=== PATIENT | female | born 1985 | race Two or more races ===

== ENCOUNTER → 2019-03-13 | Outpatient (CLI) | payer MEDICAID ==
[~2019-03-13] MED LIST: IBUP-1222 PO; PREN1TAB60 PO
[2019-03-13 10:22] LABS: MICROSCOPIC NOT IND
[2019-03-13 10:23] LABS: BASOPHILS # (AUTO) 0.07 x10^3/uL (0-0.1); BASOPHILS % (AUTO) 1 % (0-1); EOSINOPHILS # (AUTO) 0.24 x10^3/uL (0-0.4); EOSINOPHILS % (AUTO) 3 % (1-7); LYMPHOCYTES # (AUTO) 2.92 x10^3/uL (1-3.4); LYMPHOCYTES % (AUTO) 30 % (22-44); MD NO; MEAN CORPUSCULAR HEMOGLOBIN 30.2 pg (27.0-34.8); MEAN CORPUSCULAR HGB CONC 33.8 g/dL (32.4-35.8); MEAN CORPUSCULAR VOLUME 89.3 fL (80-100); MEAN PLATELET VOLUME 9.7 fL (7.4-10.4); MONOCYTES # (AUTO) 0.52 x10^3/uL (0.2-0.8); MONOCYTES % (AUTO) 5 % (2-9); NEUTROPHILS # (AUTO) 5.85 x10^3/uL (1.8-6.8); NEUTROPHILS % (AUTO) 61 % (42-75); PLATELET COUNT 227 x10^3/uL (130-400); RED BLOOD COUNT 5.04 x10^6/uL (3.82-5.3); RED CELL DISTRIBUTION WIDTH 13.4 % (9.6-15.2)
[2019-03-13 10:24] LABS: CULTURE INDICATED? NO
[2019-03-13 10:28] LABS: ANION GAP 5 mmol/L (5-15); CALCIUM 8.8 mg/dL (8.5-10.1); CHLORIDE 107 mmol/L (98-107)
[2019-03-13 10:34] LABS: ALANINE AMINOTRANSFERASE 49 U/L (12-78); ALKALINE PHOSPHATASE 80 U/L (45-117); BILIRUBIN,TOTAL 0.8 mg/dL (0.2-1.0); TOTAL PROTEIN 7.7 g/dL (6.4-8.2)
== END | disposition home or self-care (01) ==
LOC: STAR 09:06
PROVIDERS: ATTEND Obstetrics & Gynecology
DX: Z01.818 Encounter for other preprocedural examination (principal)
CPT/HCPCS: 36415; 80053; 81003; 84702; 85025

== ENCOUNTER → 2020-08-08 | Outpatient (CLI) | payer MEDICAID ==
[~2020-08-08] MED LIST changes: +POLY17PO5 PO
== END | disposition home or self-care (01) ==
LOC: STAR 14:55
PROVIDERS: ATTEND Student in an Organized Health Care Education/Training Program
DX: Z20.822 Contact with and (suspected) exposure to COVID-19 (principal); K80.20 Calculus of gallbladder without cholecystitis without obstruction
CPT/HCPCS: U0003; U0005

== ENCOUNTER 2020-08-14 07:38 | Day surgery (SDC) | payer MEDICAID ==
[~2020-08-14] VITALS: Ht 157.5 cm; Wt 57.0 kg
[~2020-08-14 07:38] MED LIST changes: +BUPIVACAINE/PF 0.5% ONE; +EPINEPHRINE 1 MG/ML, 1ML ONE
[2020-08-14] MEDS ORDERED: BUPIVACAINE/PF 0.5% ONE (08:06)
[2020-08-14] MEDS ORDERED: EPINEPHRINE 1 MG/ML, 1ML ONE (08:06)
[2020-08-14 08:17] VITALS: BP 97/62
[2020-08-14] MEDS ORDERED: CHLORHEXIDINE 15 ML UDC ONE (08:18)
[2020-08-14] MEDS ORDERED: CHLORHEXIDINE 15 ML UDC PO ONE (08:30)
[2020-08-14] MEDS ORDERED: LACTATED RINGERS 1,000 ML IV SCH (08:30)
[2020-08-14] MEDS ORDERED: FENTANYL PF 250 MCG/5ML ONE (09:05)
[2020-08-14] MEDS ORDERED: MIDAZOLAM 1 MG/ML, 2ML ONE (09:05)
[2020-08-14] MEDS ORDERED: BUPIVACAINE/PF-EPI 0.5% 1:200K INFIL ONE (09:35)
[2020-08-14] MEDS ORDERED: KETOROLAC 30 MG/1 ML ONE (09:49)
[2020-08-14] MEDS ORDERED: ROCURONIUM 10MG/ML,5ML ONE (09:49)
[2020-08-14] MEDS ORDERED: DEXAMETHASONE 4 MG/ML, 1ML ONE (09:49)
[2020-08-14] MEDS ORDERED: CEFAZOLIN 1,000 MG ONE (09:49)
[2020-08-14] MEDS ORDERED: ONDANSETRON 2MG/ML, 2ML ONE (09:49)
[2020-08-14] MEDS ORDERED: PROPOFOL 10 MG/ML, 20ML ONE (09:49)
[2020-08-14] MEDS ORDERED: NEOSTIGMINE 1 MG/ML, 10ML ONE (09:49)
[2020-08-14] MEDS ORDERED: LIDOCAINE-MPF 2% ,5ML ONE (09:49)
[2020-08-14] MEDS ORDERED: GLYCOPYRROLATE 0.2MG/1ML, 5ML ONE (09:49)
[2020-08-14] MEDS ORDERED: ACET325T26 PO (10:17)
[2020-08-14] MEDS ORDERED: OXYC5TAB2 PO (10:17)
[2020-08-14] MEDS ORDERED: IBUP-1840 PO (10:17)
[2020-08-14] MEDS ORDERED: DOCU100C33 PO (10:17)
[2020-08-14] MEDS ORDERED: LABETALOL 5MG/ML, 20ML IV PRN (11:00)
[2020-08-14] MEDS ORDERED: ALBUTEROL SULFATE 2.5 MG/3 ML NPPB PRN (11:00)
[2020-08-14] MEDS ORDERED: hydrALAzine 20 MG/ML, 1ML IV PRN (11:00)
[2020-08-14] MEDS ORDERED: ACETAMINOPHEN 325 MG TABLET PO PRN (11:00)
[2020-08-14] MEDS ORDERED: PROMETHAZINE 25 MG/ML, 1ML IVPush PRN (11:00)
[2020-08-14] MEDS ORDERED: OXYcodone 5 MG/5 ML ORAL.SOL UDC PO PRN (11:00)
[2020-08-14] MEDS ORDERED: HYDROmorphone 1 MG/ML, 1ML INJ IVPush PRN (11:00)
[2020-08-14] MEDS ORDERED: MEPERIDINE/PF 25MG/0.5ML IVPush PRN (11:00)
[2020-08-14] MEDS ORDERED: FENTANYL PF 100 MCG/2ML IV PRN (11:00)
[2020-08-14] MEDS ORDERED: MIDAZOLAM 1 MG/ML, 2ML IV PRN (11:00)
[2020-08-14] MEDS ORDERED: OXYcodone 5 MG/5 ML ORAL.SOL UDC ONE (11:11)
[2020-08-14] MEDS ORDERED: ACETAMINOPHEN 650 MG/20.3 ML UDC ONE (11:11)
[2020-08-14] MEDS ORDERED: FENTANYL PF 100 MCG/2ML ONE (11:11)
== END 2020-08-14 12:40 | disposition home or self-care (01) ==
LOC: OUT 07:38
PROVIDERS: ATTEND Student in an Organized Health Care Education/Training Program
DX: K80.10 Calculus of gallbladder with chronic cholecystitis without obstruction (principal); K82.8 Other specified diseases of gallbladder; Z79.899 Other long term (current) drug therapy; Z83.3 Family history of diabetes mellitus
CPT/HCPCS: 47562; 81025; 88304; J0171; J0690; J1100; J1885; J2250; J2405; J2704; J2710; J3010; J7120